=== PATIENT | male | born 1985 | race Caucasian/White ===

== ENCOUNTER 2017-06-24 08:24 | Emergency (ER) | payer OTHER ==
[~2017-06-24 08:24] MED LIST: CYCLOBENZAPRINE10 M1 PO; METHADONE10 MG/1 M2 PO; MOBIC15 M1 PO
[2017-06-24 08:31] VITALS: BP 135/77
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
[2017-06-24] MEDS ORDERED: CYCLOBENZAPRINE10 M1 PO (09:23)
== END 2017-06-24 09:32 ==
LOC: ERH 08:24
DX: S39.012A Strain of muscle, fascia and tendon of lower back, initial encounter (principal); V89.2XXA Person injured in unspecified motor-vehicle accident, traffic, initial encounter; Y92.410 Unspecified street and highway as the place of occurrence of the external cause